=== PATIENT | female | born 1995 | race Caucasian/White ===

== ENCOUNTER 2019-02-09 22:20 | Emergency (ER) | payer SELFPAY ==
[~2019-02-09] VITALS: Ht 160 cm; Wt 53.5 kg
[2019-02-09 22:22] VITALS: BP_SYST 137
--- NOTE | 2019-02-09 22:26 | NUR ---
Patient to ER bed 08 to gown for evaluation. Side rails up.
--- NOTE | 2019-02-09 22:28 | NUR ---
Pt brought by self,A&Ox4, pt presents to ER with cough , congestion and back pain, afebrile, skin pink and warm, cap refill <3, VSS, respirations even and unlabored.
--- NOTE | 2019-02-09 22:30 | NUR ---
Dr Cody at bedside examining patient
[2019-02-09] MEDS ORDERED: MORPHINE 2 MG/ML INJ. SYRINGE IVP ONE (22:45)
[2019-02-09] MEDS ORDERED: ONDANSETRON HCL 4 MG/2 ML VIAL IVP ONE (22:45)
--- NOTE | 2019-02-09 23:04 | NUR ---
Pt refused Morphine and Zofran at this time, no N/V noted
--- NOTE | 2019-02-09 23:04 | NUR ---
Report given to Melina HART
--- NOTE | 2019-02-09 23:17 | NUR ---
EKG performed at by TANNER Shah. Physician given copy of EKG for review.
[2019-02-09 23:30] LABS: BASOPHILS # (AUTO) 0.1 K/uL (0.0-0.2); BASOPHILS % (AUTO) 0.6 % (0.0-2.0); EOSINOPHILS # (AUTO) 0.4 K/uL (0.0-0.4); HEMATOCRIT 38.1 % (36-48); HEMOGLOBIN 12.8 g/dL (12.0-16.0); LYMPHOCYTES # (AUTO) 3.1 K/uL (1.0-5.5); LYMPHOCYTES % (AUTO) 34.8 % (20.5-51.5); MEAN CORPUSCULAR HEMOGLOBIN 28 pg (27-31); MEAN CORPUSCULAR HGB CONC 34 % (32-36); MEAN CORPUSCULAR VOLUME 82 fL (79.0-98.0); MONOCYTES # (AUTO) 0.9 K/uL (0.0-1.0); MONOCYTES % (AUTO) 9.7 % (1.7-9.3); NEUTROPHILS # (AUTO) 4.5 K/uL (1.8-7.7); NEUTROPHILS % (AUTO) 49.9 % (40.0-70.0); PLATELET COUNT (AUTO) 222 K/uL (130-430); RED BLOOD CELL COUNT(AUTO) 4.63 MIL/uL (4.2-6.2); RED CELL DISTRIBUTION WIDTH 15.1 % (9.0-15.0); WHITE BLOOD COUNT (AUTO) 8.9 K/uL (4.8-10.8)
[2019-02-09 23:37] LABS: CREATININE 0.72 mg/dL (0.55-1.30); POTASSIUM 3.8 mmol/L (3.5-5.1)
[2019-02-09 23:47] LABS: ALBUMIN 4.2 g/dL (3.4-4.8); TOTAL BILIRUBIN 0.3 mg/dL (0.0-1.0)
--- NOTE | 2019-02-09 23:58 | NUR ---
Urine specimen collected and analyzed in laboratory. Results given to laboratory
[2019-02-10 00:39] LABS: BILIRUBIN,URINE NEGATIVE (NEGATIVE); BLOOD, URINE NEGATIVE (NEGATIVE); CLARITY/URINE CLEAR (CLEAR); COLOR,URINE YELLOW (YELLOW); GLUCOSE,URINE NEGATIVE (NEGATIVE); KETONES,URINE NEGATIVE (NEGATIVE); LEUKOCYTE ESTERASE ,URINE NEGATIVE (NEGATIVE); NITRITE, URINE NEGATIVE (NEGATIVE); PROTEIN URINE NEGATIVE (NEGATIVE); UROBILINOGEN,URINE 0.2 (0.2-1.0)
--- NOTE | 2019-02-10 01:23 | NUR ---
Patient refusing 2nd troponin and ekg test. Patient reports she is self pay and declining ekg and 2nd troponin at this time. notified
--- NOTE | 2019-02-10 01:23 | NUR ---
Dr. Cody at bedside to discuss results.
[2019-02-10 01:38] VITALS: BP_SYST 128
--- NOTE | 2019-02-10 01:38 | NUR ---
Patient given written and verbal discharge instructions and verbalizes understanding. ER MD discussed with patient the results and treatment provided. Patient in stable condition. ID arm band removed. IV catheter removed intact and dressing applied, no active bleeding. Rx of zofran, zithromax, albuterol, and norco given. Patient educated on pain management and to follow up with PMD in 2-3 days. Pain Scale 0/10 Opportunity for questions provided and answered. Medication side effect fact sheet provided.
== END 2019-02-10 01:38 | disposition home or self-care (01) ==
LOC: SED 22:20
DX: R06.02 Shortness of breath (principal); M54.6 Pain in thoracic spine
CPT/HCPCS: 36415; 71045; 80053; 81003; 81025; 82550; 83605; 83880; 84484; 85025; 85379; 87040; 93005; 96365; 99284; J1956; J2405; J2270